=== PATIENT | male | born 1995 | race Caucasian/White ===

== ENCOUNTER 2016-11-06 15:11 | Emergency (ER) | payer OTHER ==
[2016-11-06] MEDS ORDERED: GASTROGRAFIN SOLUTION 30ML (Q9963) As Ordered ONE (15:53)
[2016-11-06] MEDS ORDERED: MORPHINE 2 MG/ML 1ML SYRINGE As Ordered ONE (15:53)
[2016-11-06 15:58] LABS: BASO # 0.1 K/mm3 (0.0-0.2); BASO % 1.9 % (0.0-1.0); EOS # 0.1 K/mm3 (0.0-0.50); LARGE UNSTAINED CELL # 0.1 K/mm3 (0.0-0.4); LARGE UNSTAINED CELL % 2.1 % (0.0-4.0); LYMPH # 2.1 K/mm3 (1.5-6.5); LYMPH % 31.6 % (24.0-44.0); MEAN CORPUSCULAR HEMOGLOBIN 29.7 pg (27.0-33.0); MEAN CORPUSCULAR HGB CONC 35.5 g/dl (32.0-36.5); MEAN CORPUSCULAR VOLUME 83.7 fl (80.0-96.0); MONO # 0.4 K/mm3 (0.0-0.8); MONO % 6.1 % (0.0-5.0); NEUTROPHILS # 3.6 K/mm3 (1.8-7.7); NEUTROPHILS % 56.3 % (36.0-66.0); PLATELET COUNT, AUTOMATED 281 k/mm3 (150-450); RED CELL DISTRIBUTION WIDTH 12.6 % (11.5-14.5); WHITE BLOOD COUNT 6.4 K/mm3 (4.0-10.0)
[2016-11-06 16:10] LABS: ALBUMIN 4.1 GM/DL (3.2-5.2); ALBUMIN/GLOBULIN RATIO 1.21 (1.00-1.93); ALKALINE PHOSPHATASE 116 U/L (45-117); ALT/SGPT 29 U/L (12-78); AMYLASE 77 U/L (25-115); ANION GAP 7 MEQ/L (8-16); AST/SGOT 16 U/L (15-37); BILIRUBIN,DIRECT 0.2 MG/DL (0.0-0.2); BILIRUBIN,TOTAL 0.4 MG/DL (0.2-1.0); BLOOD UREA NITROGEN 7 MG/DL (7-18); CARBON DIOXIDE LEVEL 31 MEQ/L (21-32); CHLORIDE LEVEL 106 MEQ/L (98-107); CREATININE FOR GFR 0.95 MG/DL (0.70-1.30); GLOMERULAR FILTRATION RATE > 60.0 (>60); GLUCOSE, FASTING 89 MG/DL (70-105); POTASSIUM SERUM 4.5 MEQ/L (3.5-5.1); SODIUM LEVEL 144 MEQ/L (136-145); TOTAL PROTEIN 7.5 GM/DL (6.4-8.2)
[2016-11-06] MEDS ORDERED: ISOVUE-370 76% 100ML VIAL (Q9967) As Ordered ONE (17:18)
--- NOTE | 2016-11-06 17:57 | REP ---
Clinical: Right lower quadrant pain. Technique: Axial contrast enhanced images from the lung bases to the pubic symphysis using oral and 100 ml Isovue 370 intravenous contrast material with coronal and sagittal re-formations. Findings: Lung bases are clear. Visualized portions of the heart and pericardium are normal. Liver, spleen, pancreas, gallbladder, bilateral adrenal glands and kidneys are normal. There is no evidence for bowel obstruction and a normal terminal ileum and appendix are identified in the right lower quadrant. Subtle area of pericolonic stranding involving the distal descending/proximal sigmoid colon (images 103 - 112) may reflect mild focal colitis versus epiploic appendagitis. Pelvis demonstrates normal bladder and age appropriate prostate/seminal vesicles. No pelvic fluid or ascites. No adenopathy. No free air. Abdominal aorta and vasculature is normal. Surrounding musculoskeletal structures are intact. Impression: 1. Possible mild focal colitis versus epiploic appendagitis involving the proximal sigmoid colon. 2. Otherwise normal contrast enhanced CT of the abdomen and pelvis with normal right lower quadrant structures including terminal ileum and appendix. Signed by Kp Nair MD 11/06/2016 05:49 P
--- NOTE | 2016-11-06 18:38 | EDDOCDS ---
Physician Documentation [facility] Name: Refugio Cedeño Age: 21 yrs Sex: Male : 1995 Arrival Date: 11/06/2016 Time: 15:11 Bed I7 / 29 Private MD: [facility] Disposition: 11/06/16 18:16 Discharged to Home/Self Care. Impression: Left sided colitis - possible epiploic appendigitis, Gastrointestinal hemorrhage, unspecified - suspect rectal fissure. - Condition is Stable. - Discharge Instructions: Anal Fissure, Adult, Gastrointestinal Bleeding. - Prescriptions for Cipro 500 mg Oral Tablet - take 1 tablet by ORAL route every 12 hours; 14 tablet. Flagyl 500 mg Oral Tablet - take 1 tablet by ORAL route every 8 hours for 7 days; 21 tablet. Anusol- HC 25 mg Rectal Suppository - insert 1 suppository by RECTAL route every 12 hours As needed; 20 suppository. - Medication Reconciliation, Local Pharmacy Hours form. - Follow up: [facility]; When: Tomorrow; Reason: Recheck today's complaints. Follow up: Emergency Department; When: As needed; Reason: Worsening of conditions. - Problem is new. - Symptoms have improved. Historical: - Allergies: no known allergies; - Home Meds: 1. none - PMHx: none; - PSHx: none; - Social history: Smoking status: Patient uses tobacco products, heavy tobacco smoker. No barriers to communication noted, The patient speaks fluent Nigerien, Speaks appropriately for age. - Family history: Not pertinent. - : The pt / caregiver states he / she is not on anticoagulants. Home medication list is obtained from the patient. - Exposure Risk Screening:: None identified. Vital Signs: 11/06 15:12 BP 136 / 69; Pulse 54; Resp 18 S; Temp 97.8(O); Pulse Ox 100% on R/A; Weight 81.65 kg / dd6 180.01 lbs (R); Height 70 in. (177.80 cm) (R); 15:59 BP 129 / 69 Supine; Pulse 45; Resp 18; Pulse Ox 99% on R/A; jmb 15:59 BP 133 / 78 Sitting; Pulse 52; Resp 18; Pulse Ox 97% on R/A; jmb 15:59 BP 129 / 83 Standing; Pulse 49; Resp 18; Pulse Ox 98% on R/A; jmb 15:12 Body Mass Index 25.83 (81.65 kg, 177.80 cm) dd6 MDM: 15:26 IV Saline Lock ordered. ar2 15:26 Undress patient appropriately for examination ordered. ar2 15:26 NS 0.9% 1000 ml IV at bolus once ordered. ar2 15:26 Orthostatic VS ordered. ar2 15:27 morphine 2 mg IVP once ordered. ar2 15:27 Amylase Ordered. EDMS 15:27 Basic Metabolic Profile Ordered. EDMS 15:27 CBC with Diff Ordered. EDMS 15:27 Lipase Ordered. EDMS 15:27 Liver Profile Ordered. EDMS 15:27 Lactic Acid (Weathers tube on ice) Ordered. EDMS 15:27 Type & Screen Ordered. EDMS 15:28 CT ABD & PELVIS: IV and Oral Contrast Ordered. EDMS 15:28 NOTHING BY MOUTH+DIET ordered. EDMS 15:56 Financial registration complete. gj 15:59 [facility] Payment Agreement was scanned into [employer] and attached to record. gjb 16:12 Basic Metabolic Profile Reviewed. ar2 16:12 CBC with Diff Reviewed. ar2 16:12 Amylase Reviewed. ar2 16:12 Lipase Reviewed. ar2 16:12 Liver Profile Reviewed. ar2 16:12 Lactic Acid (Weathers tube on ice) Reviewed. ar2 16:12 Type & Screen Reviewed. ar2 Administered Medications: 16:06 Drug: NS 0.9% 1000 ml [sodium chloride 0.9 % intravenous solution] Route: IV; Rate: jmb bolus; Site: left antecubital; 16:06 Drug: morphine 2 mg [morphine 2 mg/mL intravenous cartridge (1 mL)] Route: IVP; Site: b left antecubital; Signatures: Dispatcher [employer] EDMS Leo Bird PA-C PA-C ar2 Raquel Walsh RN RN ms18 Jeny Edward RN RN kc3 Marguerite Thompson gjb Soni Jones RN RN tm5 Arnie Bynum RN The chart was reviewed and I authenticate all verbal orders and agree with the evaluation and treatment provided.Attachments: 15:59 [facility] Payment Agreement [facility] MTDD
--- NOTE | 2016-11-06 18:38 | EDDOCDS ---
Nurse's Notes [facility] Name: Refugio Cedeño Age: 21 yrs Sex: Male : 1995 Arrival Date: 11/06/2016 Time: 15:11 Bed I7 / 29 [facility] Diagnosis: Left sided colitis-possible epiploic appendigitis;Gastrointestinal hemorrhage, unspecified-suspect rectal fissure Presentation: 11/06 15:13 Presenting complaint: Patient states: moderate amount of bright blood in stool x 2 days kc3 with right lower quadrant pain x 4 days with achiness reported. Adult Sepsis Screening: The patient does not have new or worsening altered mentation. Patient's respiratory rate is less than 22. Systolic blood pressure is greater than 100. Patient has a qSOFA score of 0- Negative Sepsis Screen. Suicide/Homicide risk assessment- the patient denies having any suicidal and/or homicidal ideations and does not present with any other emotional, behavioral or mental health complaints. Status: The patient is an active duty client service professional. Transition of care: patient was not received from another setting of care. 15:13 Acuity: RL Level 3 kc3 15:13 Method Of Arrival: Walkin/Carried/Asstd kc3 Triage Assessment: 15:15 General: Appears in no apparent distress, comfortable, Behavior is appropriate for age, kc3 cooperative, reports feeling weak. . Pain: Location: right lower quadrant Pain currently is 5 out of 10 on a pain scale. Pt Declines HIV testing. Neurological: Level of Consciousness is awake, alert, obeys commands, Oriented to person, place, time. Respiratory: Respiratory effort is even, unlabored, Respiratory pattern is regular, symmetrical. GI: Reports bloody stools lower abdominal pain. Derm: Skin is pink, warm & dry. Historical: - Allergies: no known allergies; - Home Meds: 1. none - PMHx: none; - PSHx: none; - Social history: Smoking status: Patient uses tobacco products, heavy tobacco smoker. No barriers to communication noted, The patient speaks fluent Bhutanese, Speaks appropriately for age. - Family history: Not pertinent. - : The pt / caregiver states he / she is not on anticoagulants. Home medication list is obtained from the patient. - Exposure Risk Screening:: None identified. Screenin:47 Screening information is obtained from the patient. Fall risk: No risks identified. ms18 Assistance ADL's: requires no assistance with activities of daily living. Abuse/DV Screen: The patient / caregiver reports he/she is: not in a situation that causes fear, pain or injury. Nutritional screening: No deficits noted. Advance Directives: There is no living will. home support is adequate. Assessment: 15:47 General: Appears in no apparent distress, comfortable, well nourished, well groomed, ms18 Behavior is appropriate for age, cooperative. Neurological: No deficits noted. Respiratory: Airway is patent Respiratory effort is even, unlabored. GI: Abdomen is flat, Reports bloody stools. Derm: Skin is pink, warm & dry. 16:40 General: Appears in no apparent distress, comfortable, Behavior is appropriate for age, jmb cooperative. Neurological: Level of Consciousness is awake, alert, obeys commands, Oriented to person, place, time. Respiratory: Airway is patent Respiratory effort is even, unlabored, Respiratory pattern is regular, symmetrical. 17:16 General: Appears in no apparent distress, comfortable, Behavior is appropriate for age, jmb cooperative, Patient laying on stretcher, appears comfortable. Patient denies discomfort at this time. . Neurological: Level of Consciousness is awake, alert, obeys commands, Oriented to person, place, time, Speech is normal, Facial symmetry appears normal, Facial symmetry: tongue is midline. Respiratory: Airway is patent Respiratory effort is even, unlabored, Respiratory pattern is regular, symmetrical. 18:14 General: Appears in no apparent distress, comfortable, Behavior is appropriate for age, jmb cooperative, Patient laying on stretcher, appears comfortable. Voices no complaints at this time. . Neurological: Level of Consciousness is awake, alert, obeys commands, Oriented to person, place, time. Respiratory: Airway is patent Respiratory effort is even, unlabored, Respiratory pattern is regular, symmetrical. 18:36 Reassessment: Patient appears in no apparent distress at this time. Patient denies pain tm5 at this time. Patient states feeling better. Patient states symptoms have improved. Vital Signs: 15:12 BP 136 / 69; Pulse 54; Resp 18 S; Temp 97.8(O); Pulse Ox 100% on R/A; Weight 81.65 kg dd6 (R); Height 70 in. (177.80 cm) (R); 15:59 BP 129 / 69 Supine; Pulse 45; Resp 18; Pulse Ox 99% on R/A; jmb 15:59 BP 133 / 78 Sitting; Pulse 52; Resp 18; Pulse Ox 97% on R/A; jmb 15:59 BP 129 / 83 Standing; Pulse 49; Resp 18; Pulse Ox 98% on R/A; jmb 15:12 Body Mass Index 25.83 (81.65 kg, 177.80 cm) dd6 Vitals: 15:12 Log In Time: November 06, 2016 at 15:10. dd6 ED Course: 15:12 Patient visited by Raul Pitts PCA. dd6 15:12 [facility] is Private Physician. dd6 15:12 Patient moved to Waiting dd6 15:13 Patient moved to Pre RCE dd6 15:15 Triage Initiated kc3 15:18 Patient moved to Triage 3 kc3 15:19 Leo Bird PA-C is PHCP. ar2 15:19 Daphnie Najera MD is Attending Physician. ar2 15:19 Patient visited by Leo Bird PA-C. ar2 15:29 Patient moved to I7 / rs6 15:46 Patient visited by Raquel Walsh RN. ms18 15:46 Type & Screen Sent. ms18 15:46 Lactic Acid (Weathers tube on ice) Sent. ms18 15:46 Amylase Sent. ms18 15:46 Basic Metabolic Profile Sent. ms18 15:46 CBC with Diff Sent. ms18 15:46 Lipase Sent. ms18 15:46 Liver Profile Sent. ms18 15:46 Inserted saline lock: 18 gauge in left antecubital area and blood collected. The ms18 patient tolerated the procedure well. 15:47 The patient / caregiver is instructed regarding the plan of care and ED course. Patient ms18 has correct armband on for positive identification. Placed in gown. Bed in low position. Call light in reach. Property :Personal belongings accompany Pt. 15:59 [facility] Payment Agreement was scanned into [employer] and attached to record. gjb 16:14 Patient name changed from Refugio\S\\S\Plaisted\S\ to Refugio\S\Daryl\S\Plaisted. EDMS 16:40 Patient visited by Arnie Bynum RN. jmb 17:05 Patient has correct armband on for positive identification. Bed in low position. Call jam1 light in reach. Side rails up X 1. Door closed. 17:17 Patient visited by Arnie Bynum RN. pierre 18:15 Patient visited by Arnie Bynum RN. samanthab 18:15 [facility] is Referral Physician. ar2 18:19 CT ABD & PELVIS: IV and Oral Contrast Returned. EDMS 18:36 Patient visited by Soni Jones RN. tm5 18:36 No procedures done that require assistance. tm5 Administered Medications: 16:06 Drug: NS 0.9% 1000 ml [sodium chloride 0.9 % intravenous solution] Route: IV; Rate: jmb bolus; Site: left antecubital; 16:06 Drug: morphine 2 mg [morphine 2 mg/mL intravenous cartridge (1 mL)] Route: IVP; Site: [facility] left antecubital; Order Results: Lab Order: Amylase; SPEC'M 11/06/16 15:37 Test: AMYLASE; Value: 77; Range: 25-115; Units: U/L; Status: F Lab Order: Basic Metabolic Profile; SPEC'M 11/06/16 15:37 Test: GLUCOSE, FASTING; Value: 89; Range: 70-105; Units: MG/DL; Status: F Test: BLOOD UREA NITROGEN; Value: 7; Range: 7-18; Units: MG/DL; Status: F Test: CREATININE FOR GFR; Value: 0.95; Range: 0.70-1.30; Units: MG/DL; Status: F Test: GLOMERULAR FILTRATION RATE; Value: > 60.0; Range: >60; Status: F Test: SODIUM LEVEL; Value: 144; Range: 136-145; Units: MEQ/L; Status: F Test: POTASSIUM SERUM; Value: 4.5; Range: 3.5-5.1; Units: MEQ/L; Status: F Test: CHLORIDE LEVEL; Value: 106; Range: 98-107; Units: MEQ/L; Status: F Test: CARBON DIOXIDE LEVEL; Value: 31; Range: 21-32; Units: MEQ/L; Status: F Test: ANION GAP; Value: 7; Range: 8-16; Abnormal: Below low normal; Units: MEQ/L; Status: F Test: CALCIUM LEVEL; Value: 9.0; Range: 8.5-10.1; Units: MG/DL; Status: F Test Note: ; Units are mL/min/1.73 m2 Chronic Kidney Disease Staging per NKF: Stage I & II GFR >=60 Normal to Mildly Decreased Stage III GFR 30-59 Moderately Decreased Stage IV GFR 15-29 Severely Decreased Stage V GFR <15 Very Little GFR Left ESRD GFR <15 on STRATEGIC CONSULTANT Lab Order: CBC with Diff; SPEC'M 11/06/16 15:37 Test: WHITE BLOOD COUNT; Value: 6.4; Range: 4.0-10.0; Units: K/mm3; Status: F Test: RED BLOOD COUNT; Value: 5.24; Range: 4.30-6.10; Units: M/mm3; Status: F Test: HEMOGLOBIN; Value: 15.6; Range: 14.0-18.0; Units: g/dl; Status: F Test: HEMATOCRIT; Value: 43.9; Range: 42.0-52.0; Units: %; Status: F Test: MEAN CORPUSCULAR VOLUME; Value: 83.7; Range: 80.0-96.0; Units: fl; Status: F Test: MEAN CORPUSCULAR HEMOGLOBIN; Value: 29.7; Range: 27.0-33.0; Units: pg; Status: F Test: MEAN CORPUSCULAR HGB CONC; Value: 35.5; Range: 32.0-36.5; Units: g/dl; Status: F Test: RED CELL DISTRIBUTION WIDTH; Value: 12.6; Range: 11.5-14.5; Units: %; Status: F Test: PLATELET COUNT, AUTOMATED; Value: 281; Range: 150-450; Units: k/mm3; Status: F Test: NEUTROPHILS %; Value: 56.3; Range: 36.0-66.0; Units: %; Status: F Test: LYMPH %; Value: 31.6; Range: 24.0-44.0; Units: %; Status: F Test: MONO %; Value: 6.1; Range: 0.0-5.0; Abnormal: Above high normal; Units: %; Status: F Test: EOS %; Value: 2.0; Range: 0.0-3.0; Units: %; Status: F Test: BASO %; Value: 1.9; Range: 0.0-1.0; Abnormal: Above high normal; Units: %; Status: F Test: LARGE UNSTAINED CELL %; Value: 2.1; Range: 0.0-4.0; Units: %; Status: F Test: NEUTROPHILS #; Value: 3.6; Range: 1.8-7.7; Units: K/mm3; Status: F Test: LYMPH #; Value: 2.1; Range: 1.5-6.5; Units: K/mm3; Status: F Test: MONO #; Value: 0.4; Range: 0.0-0.8; Units: K/mm3; Status: F Test: EOS #; Value: 0.1; Range: 0.0-0.50; Units: K/mm3; Status: F Test: BASO #; Value: 0.1; Range: 0.0-0.2; Units: K/mm3; Status: F Test: LARGE UNSTAINED CELL #; Value: 0.1; Range: 0.0-0.4; Units: K/mm3; Status: F Lab Order: Lipase; SPEC'M 11/06/16 15:37 Test: LIPASE; Value: 88; Range: 73-393; Units: U/L; Status: F Lab Order: Liver Profile; SPEC'M 11/06/16 15:37 Test: AST/SGOT; Value: 16; Range: 15-37; Units: U/L; Status: F Test: ALT/SGPT; Value: 29; Range: 12-78; Units: U/L; Status: F Test: ALKALINE PHOSPHATASE; Value: 116; Range: 45-117; Units: U/L; Status: F Test: BILIRUBIN,TOTAL; Value: 0.4; Range: 0.2-1.0; Units: MG/DL; Status: F Test: BILIRUBIN,DIRECT; Value: 0.2; Range: 0.0-0.2; Units: MG/DL; Status: F Test: TOTAL PROTEIN; Value: 7.5; Range: 6.4-8.2; Units: GM/DL; Status: F Test: ALBUMIN; Value: 4.1; Range: 3.2-5.2; Units: GM/DL; Status: F Test: ALBUMIN/GLOBULIN RATIO; Value: 1.21; Range: 1.00-1.93; Status: F Lab Order: Lactic Acid (Weathers tube on ice); SPEC'M 11/06/16 15:37 Test: LACTIC ACID LEVEL, LACTATE; Value: 1.5; Range: 0.4-2.0; Units: MMOL/L; Status: F Lab Order: Type & Screen; SPEC'M 11/06/16 15:37 Test: BLOOD TYPE; Value: O POS; Status: F Test: AB SCREEN (INDIRECT ABELARDO)GEL; Value: NEGATIVE; Status: F Radiology Order: CT ABD & PELVIS: IV and Oral Contrast Test: CT ABD & PELVIS: IV and Oral Contrast REASON FOR EXAMINATION: RLQ pain, hematochezia; Clinical: Right lower quadrant pain.; ; Technique: Axial contrast enhanced images from the lung bases to the pubic; symphysis using oral and 100 ml Isovue 370 intravenous contrast material with; coronal and sagittal re-formations.; ; Findings:; Lung bases are clear. Visualized portions of the heart and pericardium are; normal.; ; Liver, spleen, pancreas, gallbladder, bilateral adrenal glands and kidneys are; normal. There is no evidence for bowel obstruction and a normal terminal ileum; and appendix are identified in the right lower quadrant. Subtle area of; pericolonic stranding involving the distal descending/proximal sigmoid colon; (images 103 - 112) may reflect mild focal colitis versus epiploic appendagitis.; Pelvis demonstrates normal bladder and age appropriate prostate/seminal vesicles.; No pelvic fluid or ascites. No adenopathy. No free air. Abdominal aorta and; vasculature is normal. Surrounding musculoskeletal structures are intact.; ; Impression:; 1. Possible mild focal colitis versus epiploic appendagitis involving the; proximal sigmoid colon.; 2. Otherwise normal contrast enhanced CT of the abdomen and pelvis with normal; right lower quadrant structures including terminal ileum and appendix.; ; ; Signed by; Kp Nair MD 11/06/2016 05:49 P; Outcome: 18:16 Discharge ordered by Provider. ar2 18:36 Discharge Assessment: Patient awake, alert and oriented x 3. No cognitive and/or tm5 functional deficits noted. Patient verbalized understanding of disposition instructions. patient administered narcotics - yes. Pt provided with safe discharge. The following High Risk Discharge criteria are identified: None. Discharged to home ambulatory, with friend. Condition: good Condition: stable. Discharge instructions given to patient, Instructed on discharge instructions, follow up and referral plans. medication usage, Demonstrated understanding of instructions, medications, Prescriptions given X 3. CT Study completed. 18:37 Patient left the ED. tm5 Signatures: Dispatcher [employer] EDMS Venecia Donohue, CRYPTOGRAPHIC VULNERABILITY ANALYST CRYPTOGRAPHIC VULNERABILITY ANALYST jam1 Leo Bird PA-C PA-C ar2 Raul Pitts, CRYPTOGRAPHIC VULNERABILITY ANALYST CRYPTOGRAPHIC VULNERABILITY ANALYST dd6 Arnie Bynum,RN RN Raquel Fajardo RN RN ms18 Tayler Marcus, CRYPTOGRAPHIC VULNERABILITY ANALYST CRYPTOGRAPHIC VULNERABILITY ANALYST rs6 Jeny Edward,PAPO RN kc3 Marguerite Thompson Tonya,RN RN tm5 MTDD
--- NOTE | 2016-11-08 19:38 | EDDOCDS ---
Physician Documentation [facility] Name: Refugio Cedeño Age: 21 yrs Sex: Male : 1995 Arrival Date: 11/06/2016 Time: 15:11 Bed I7 / 29 Private MD: [facility] Disposition: 11/06/16 18:16 Discharged to Home/Self Care. Impression: Left sided colitis - possible epiploic appendigitis, Gastrointestinal hemorrhage, unspecified - suspect rectal fissure. - Condition is Stable. - Discharge Instructions: Anal Fissure, Adult, Gastrointestinal Bleeding. - Prescriptions for Cipro 500 mg Oral Tablet - take 1 tablet by ORAL route every 12 hours; 14 tablet. Flagyl 500 mg Oral Tablet - take 1 tablet by ORAL route every 8 hours for 7 days; 21 tablet. Anusol- HC 25 mg Rectal Suppository - insert 1 suppository by RECTAL route every 12 hours As needed; 20 suppository. - Medication Reconciliation, Local Pharmacy Hours form. - Follow up: [facility]; When: Tomorrow; Reason: Recheck today's complaints. Follow up: Emergency Department; When: As needed; Reason: Worsening of conditions. - Problem is new. - Symptoms have improved. Historical: - Allergies: no known allergies; - Home Meds: 1. none - PMHx: none; - PSHx: none; - Social history: Smoking status: Patient uses tobacco products, heavy tobacco smoker. No barriers to communication noted, The patient speaks fluent Slovenian, Speaks appropriately for age. - Family history: Not pertinent. - : The pt / caregiver states he / she is not on anticoagulants. Home medication list is obtained from the patient. - Exposure Risk Screening:: None identified. Vital Signs: 11/06 15:12 BP 136 / 69; Pulse 54; Resp 18 S; Temp 97.8(O); Pulse Ox 100% on R/A; Weight 81.65 kg / dd6 180.01 lbs (R); Height 70 in. (177.80 cm) (R); 15:59 BP 129 / 69 Supine; Pulse 45; Resp 18; Pulse Ox 99% on R/A; jmb 15:59 BP 133 / 78 Sitting; Pulse 52; Resp 18; Pulse Ox 97% on R/A; jmb 15:59 BP 129 / 83 Standing; Pulse 49; Resp 18; Pulse Ox 98% on R/A; jmb 15:12 Body Mass Index 25.83 (81.65 kg, 177.80 cm) dd6 MDM: 15:26 IV Saline Lock ordered. ar2 15:26 Undress patient appropriately for examination ordered. ar2 15:26 NS 0.9% 1000 ml IV at bolus once ordered. ar2 15:26 Orthostatic VS ordered. ar2 15:27 morphine 2 mg IVP once ordered. ar2 15:27 Amylase Ordered. EDMS 15:27 Basic Metabolic Profile Ordered. EDMS 15:27 CBC with Diff Ordered. EDMS 15:27 Lipase Ordered. EDMS 15:27 Liver Profile Ordered. EDMS 15:27 Lactic Acid (Weathers tube on ice) Ordered. EDMS 15:27 Type & Screen Ordered. EDMS 15:28 CT ABD & PELVIS: IV and Oral Contrast Ordered. EDMS 15:28 NOTHING BY MOUTH+DIET ordered. EDMS 15:56 Financial registration complete. gjb 15:59 [facility] Payment Agreement was scanned into [employer] and attached to record. gjb 16:12 Basic Metabolic Profile Reviewed. ar2 16:12 CBC with Diff Reviewed. ar2 16:12 Amylase Reviewed. ar2 16:12 Lipase Reviewed. ar2 16:12 Liver Profile Reviewed. ar2 16:12 Lactic Acid (Weathers tube on ice) Reviewed. ar2 16:12 Type & Screen Reviewed. ar2 11/07 11:50 T-Sheet-- Draft Copy was scanned into [employer] and attached to record. gb 11:50 Radiology Report was scanned into [employer] and attached to record. gb 11:51 PCR was scanned into [employer] and attached to record. gb Administered Medications: 11/06 16:06 Drug: NS 0.9% 1000 ml [sodium chloride 0.9 % intravenous solution] Route: IV; Rate: jmb bolus; Site: left antecubital; 16:06 Drug: morphine 2 mg [morphine 2 mg/mL intravenous cartridge (1 mL)] Route: IVP; Site: jmb left antecubital; Signatures: Dispatcher [employer] EDMS Jessica Tamayo, Reg Reg gb Leo Bird, MARK PANavdeepC ar2 Raquel Walsh RN RN ms18 Jeny Edward RN RN kc3 Marguerite Thompson TonyaRN RN tm5 Arnie Bynum RN jmb The chart was reviewed and I authenticate all verbal orders and agree with the evaluation and treatment provided.Attachments: 15:59 [facility] Payment Agreement gjb 11/07 11:50 T-Sheet-- Draft Copy gb Chart Complete MTDD
--- NOTE | 2016-11-08 19:38 | EDDOCDS ---
Nurse's Notes [facility] Name: Refugio Cedeño Age: 21 yrs Sex: Male : 1995 Arrival Date: 11/06/2016 Time: 15:11 Bed I7 / 29 [facility] Diagnosis: Left sided colitis-possible epiploic appendigitis;Gastrointestinal hemorrhage, unspecified-suspect rectal fissure Presentation: 11/06 15:13 Presenting complaint: Patient states: moderate amount of bright blood in stool x 2 days kc3 with right lower quadrant pain x 4 days with achiness reported. Adult Sepsis Screening: The patient does not have new or worsening altered mentation. Patient's respiratory rate is less than 22. Systolic blood pressure is greater than 100. Patient has a qSOFA score of 0- Negative Sepsis Screen. Suicide/Homicide risk assessment- the patient denies having any suicidal and/or homicidal ideations and does not present with any other emotional, behavioral or mental health complaints. Status: The patient is an active duty clinical services director. Transition of care: patient was not received from another setting of care. 15:13 Acuity: RL Level 3 kc3 15:13 Method Of Arrival: Walkin/Carried/Asstd kc3 Triage Assessment: 15:15 General: Appears in no apparent distress, comfortable, Behavior is appropriate for age, kc3 cooperative, reports feeling weak. . Pain: Location: right lower quadrant Pain currently is 5 out of 10 on a pain scale. Pt Declines HIV testing. Neurological: Level of Consciousness is awake, alert, obeys commands, Oriented to person, place, time. Respiratory: Respiratory effort is even, unlabored, Respiratory pattern is regular, symmetrical. GI: Reports bloody stools lower abdominal pain. Derm: Skin is pink, warm & dry. Historical: - Allergies: no known allergies; - Home Meds: 1. none - PMHx: none; - PSHx: none; - Social history: Smoking status: Patient uses tobacco products, heavy tobacco smoker. No barriers to communication noted, The patient speaks fluent [place], Speaks appropriately for age. - Family history: Not pertinent. - : The pt / caregiver states he / she is not on anticoagulants. Home medication list is obtained from the patient. - Exposure Risk Screening:: None identified. Screenin:47 Screening information is obtained from the patient. Fall risk: No risks identified. ms18 Assistance ADL's: requires no assistance with activities of daily living. Abuse/DV Screen: The patient / caregiver reports he/she is: not in a situation that causes fear, pain or injury. Nutritional screening: No deficits noted. Advance Directives: There is no living will. home support is adequate. Assessment: 15:47 General: Appears in no apparent distress, comfortable, well nourished, well groomed, ms18 Behavior is appropriate for age, cooperative. Neurological: No deficits noted. Respiratory: Airway is patent Respiratory effort is even, unlabored. GI: Abdomen is flat, Reports bloody stools. Derm: Skin is pink, warm & dry. 16:40 General: Appears in no apparent distress, comfortable, Behavior is appropriate for age, jmb cooperative. Neurological: Level of Consciousness is awake, alert, obeys commands, Oriented to person, place, time. Respiratory: Airway is patent Respiratory effort is even, unlabored, Respiratory pattern is regular, symmetrical. 17:16 General: Appears in no apparent distress, comfortable, Behavior is appropriate for age, jmb cooperative, Patient laying on stretcher, appears comfortable. Patient denies discomfort at this time. . Neurological: Level of Consciousness is awake, alert, obeys commands, Oriented to person, place, time, Speech is normal, Facial symmetry appears normal, Facial symmetry: tongue is midline. Respiratory: Airway is patent Respiratory effort is even, unlabored, Respiratory pattern is regular, symmetrical. 18:14 General: Appears in no apparent distress, comfortable, Behavior is appropriate for age, jmb cooperative, Patient laying on stretcher, appears comfortable. Voices no complaints at this time. . Neurological: Level of Consciousness is awake, alert, obeys commands, Oriented to person, place, time. Respiratory: Airway is patent Respiratory effort is even, unlabored, Respiratory pattern is regular, symmetrical. 18:36 Reassessment: Patient appears in no apparent distress at this time. Patient denies pain tm5 at this time. Patient states feeling better. Patient states symptoms have improved. Vital Signs: 15:12 BP 136 / 69; Pulse 54; Resp 18 S; Temp 97.8(O); Pulse Ox 100% on R/A; Weight 81.65 kg dd6 (R); Height 70 in. (177.80 cm) (R); 15:59 BP 129 / 69 Supine; Pulse 45; Resp 18; Pulse Ox 99% on R/A; jmb 15:59 BP 133 / 78 Sitting; Pulse 52; Resp 18; Pulse Ox 97% on R/A; jmb 15:59 BP 129 / 83 Standing; Pulse 49; Resp 18; Pulse Ox 98% on R/A; jmb 15:12 Body Mass Index 25.83 (81.65 kg, 177.80 cm) dd6 Vitals: 15:12 Log In Time: November 06, 2016 at 15:10. dd6 ED Course: 15:12 Patient visited by Raul Pitts PCA. dd6 15:12 [facility] is Private Physician. dd6 15:12 Patient moved to Waiting dd6 15:13 Patient moved to Pre RCE dd6 15:15 Triage Initiated kc3 15:18 Patient moved to Triage 3 kc3 15:19 Leo Bird PA-C is PHCP. ar2 15:19 Daphnie Najera MD is Attending Physician. ar2 15:19 Patient visited by Leo Bird PA-C. ar2 15:29 Patient moved to I7 / rs6 15:46 Patient visited by Raquel Walsh RN. ms18 15:46 Type & Screen Sent. ms18 15:46 Lactic Acid (Weathers tube on ice) Sent. ms18 15:46 Amylase Sent. ms18 15:46 Basic Metabolic Profile Sent. ms18 15:46 CBC with Diff Sent. ms18 15:46 Lipase Sent. ms18 15:46 Liver Profile Sent. ms18 15:46 Inserted saline lock: 18 gauge in left antecubital area and blood collected. The ms18 patient tolerated the procedure well. 15:47 The patient / caregiver is instructed regarding the plan of care and ED course. Patient ms18 has correct armband on for positive identification. Placed in gown. Bed in low position. Call light in reach. Property :Personal belongings accompany Pt. 15:59 [facility] Payment Agreement was scanned into Q-Bot and attached to record. gjb 16:14 Patient name changed from Refugio\S\\S\Plaisted\S\ to Refugio\S\Daryl\S\Plaisted. EDMS 16:40 Patient visited by Arnie Bynum RN. jmb 17:05 Patient has correct armband on for positive identification. Bed in low position. Call jam1 light in reach. Side rails up X 1. Door closed. 17:17 Patient visited by Arnie Bynum RN. pierre 18:15 Patient visited by Arnie Bynum RN. samanthab 18:15 [facility] is Referral Physician. ar2 18:19 CT ABD & PELVIS: IV and Oral Contrast Returned. EDMS 18:36 Patient visited by Soni Jones RN. tm5 18:36 No procedures done that require assistance. tm5 11/07 11:50 T-Sheet-- Draft Copy was scanned into Q-Bot and attached to record. gb 11:50 Radiology Report was scanned into Q-Bot and attached to record. gb 11:51 PCR was scanned into Q-Bot and attached to record. gb Administered Medications: 11/06 16:06 Drug: NS 0.9% 1000 ml [sodium chloride 0.9 % intravenous solution] Route: IV; Rate: jmb bolus; Site: left antecubital; 16:06 Drug: morphine 2 mg [morphine 2 mg/mL intravenous cartridge (1 mL)] Route: IVP; Site: [facility] left antecubital; Order Results: Lab Order: Amylase; SPEC'M 11/06/16 15:37 Test: AMYLASE; Value: 77; Range: 25-115; Units: U/L; Status: F Lab Order: Basic Metabolic Profile; SPEC'M 11/06/16 15:37 Test: GLUCOSE, FASTING; Value: 89; Range: 70-105; Units: MG/DL; Status: F Test: BLOOD UREA NITROGEN; Value: 7; Range: 7-18; Units: MG/DL; Status: F Test: CREATININE FOR GFR; Value: 0.95; Range: 0.70-1.30; Units: MG/DL; Status: F Test: GLOMERULAR FILTRATION RATE; Value: > 60.0; Range: >60; Status: F Test: SODIUM LEVEL; Value: 144; Range: 136-145; Units: MEQ/L; Status: F Test: POTASSIUM SERUM; Value: 4.5; Range: 3.5-5.1; Units: MEQ/L; Status: F Test: CHLORIDE LEVEL; Value: 106; Range: 98-107; Units: MEQ/L; Status: F Test: CARBON DIOXIDE LEVEL; Value: 31; Range: 21-32; Units: MEQ/L; Status: F Test: ANION GAP; Value: 7; Range: 8-16; Abnormal: Below low normal; Units: MEQ/L; Status: F Test: CALCIUM LEVEL; Value: 9.0; Range: 8.5-10.1; Units: MG/DL; Status: F Test Note: ; Units are mL/min/1.73 m2 Chronic Kidney Disease Staging per NKF: Stage I & II GFR >=60 Normal to Mildly Decreased Stage III GFR 30-59 Moderately Decreased Stage IV GFR 15-29 Severely Decreased Stage V GFR <15 Very Little GFR Left ESRD GFR <15 on SEARCH MARKETING COORDINATOR Lab Order: CBC with Diff; SPEC'M 11/06/16 15:37 Test: WHITE BLOOD COUNT; Value: 6.4; Range: 4.0-10.0; Units: K/mm3; Status: F Test: RED BLOOD COUNT; Value: 5.24; Range: 4.30-6.10; Units: M/mm3; Status: F Test: HEMOGLOBIN; Value: 15.6; Range: 14.0-18.0; Units: g/dl; Status: F Test: HEMATOCRIT; Value: 43.9; Range: 42.0-52.0; Units: %; Status: F Test: MEAN CORPUSCULAR VOLUME; Value: 83.7; Range: 80.0-96.0; Units: fl; Status: F Test: MEAN CORPUSCULAR HEMOGLOBIN; Value: 29.7; Range: 27.0-33.0; Units: pg; Status: F Test: MEAN CORPUSCULAR HGB CONC; Value: 35.5; Range: 32.0-36.5; Units: g/dl; Status: F Test: RED CELL DISTRIBUTION WIDTH; Value: 12.6; Range: 11.5-14.5; Units: %; Status: F Test: PLATELET COUNT, AUTOMATED; Value: 281; Range: 150-450; Units: k/mm3; Status: F Test: NEUTROPHILS %; Value: 56.3; Range: 36.0-66.0; Units: %; Status: F Test: LYMPH %; Value: 31.6; Range: 24.0-44.0; Units: %; Status: F Test: MONO %; Value: 6.1; Range: 0.0-5.0; Abnormal: Above high normal; Units: %; Status: F Test: EOS %; Value: 2.0; Range: 0.0-3.0; Units: %; Status: F Test: BASO %; Value: 1.9; Range: 0.0-1.0; Abnormal: Above high normal; Units: %; Status: F Test: LARGE UNSTAINED CELL %; Value: 2.1; Range: 0.0-4.0; Units: %; Status: F Test: NEUTROPHILS #; Value: 3.6; Range: 1.8-7.7; Units: K/mm3; Status: F Test: LYMPH #; Value: 2.1; Range: 1.5-6.5; Units: K/mm3; Status: F Test: MONO #; Value: 0.4; Range: 0.0-0.8; Units: K/mm3; Status: F Test: EOS #; Value: 0.1; Range: 0.0-0.50; Units: K/mm3; Status: F Test: BASO #; Value: 0.1; Range: 0.0-0.2; Units: K/mm3; Status: F Test: LARGE UNSTAINED CELL #; Value: 0.1; Range: 0.0-0.4; Units: K/mm3; Status: F Lab Order: Lipase; SPEC'M 11/06/16 15:37 Test: LIPASE; Value: 88; Range: 73-393; Units: U/L; Status: F Lab Order: Liver Profile; SPEC'M 11/06/16 15:37 Test: AST/SGOT; Value: 16; Range: 15-37; Units: U/L; Status: F Test: ALT/SGPT; Value: 29; Range: 12-78; Units: U/L; Status: F Test: ALKALINE PHOSPHATASE; Value: 116; Range: 45-117; Units: U/L; Status: F Test: BILIRUBIN,TOTAL; Value: 0.4; Range: 0.2-1.0; Units: MG/DL; Status: F Test: BILIRUBIN,DIRECT; Value: 0.2; Range: 0.0-0.2; Units: MG/DL; Status: F Test: TOTAL PROTEIN; Value: 7.5; Range: 6.4-8.2; Units: GM/DL; Status: F Test: ALBUMIN; Value: 4.1; Range: 3.2-5.2; Units: GM/DL; Status: F Test: ALBUMIN/GLOBULIN RATIO; Value: 1.21; Range: 1.00-1.93; Status: F Lab Order: Lactic Acid (Weathers tube on ice); SPEC'M 11/06/16 15:37 Test: LACTIC ACID LEVEL, LACTATE; Value: 1.5; Range: 0.4-2.0; Units: MMOL/L; Status: F Lab Order: Type & Screen; SPECM 11/06/16 15:37 Test: BLOOD TYPE; Value: O POS; Status: F Test: AB SCREEN (INDIRECT ABELARDO)GEL; Value: NEGATIVE; Status: F Radiology Order: CT ABD & PELVIS: IV and Oral Contrast Test: CT ABD & PELVIS: IV and Oral Contrast REASON FOR EXAMINATION: RLQ pain, hematochezia; Clinical: Right lower quadrant pain.; ; Technique: Axial contrast enhanced images from the lung bases to the pubic; symphysis using oral and 100 ml Isovue 370 intravenous contrast material with; coronal and sagittal re-formations.; ; Findings:; Lung bases are clear. Visualized portions of the heart and pericardium are; normal.; ; Liver, spleen, pancreas, gallbladder, bilateral adrenal glands and kidneys are; normal. There is no evidence for bowel obstruction and a normal terminal ileum; and appendix are identified in the right lower quadrant. Subtle area of; pericolonic stranding involving the distal descending/proximal sigmoid colon; (images 103 - 112) may reflect mild focal colitis versus epiploic appendagitis.; Pelvis demonstrates normal bladder and age appropriate prostate/seminal vesicles.; No pelvic fluid or ascites. No adenopathy. No free air. Abdominal aorta and; vasculature is normal. Surrounding musculoskeletal structures are intact.; ; Impression:; 1. Possible mild focal colitis versus epiploic appendagitis involving the; proximal sigmoid colon.; 2. Otherwise normal contrast enhanced CT of the abdomen and pelvis with normal; right lower quadrant structures including terminal ileum and appendix.; ; ; Signed by; Kp Nair MD 11/06/2016 05:49 P; Outcome: 18:16 Discharge ordered by Provider. ar2 18:36 Discharge Assessment: Patient awake, alert and oriented x 3. No cognitive and/or tm5 functional deficits noted. Patient verbalized understanding of disposition instructions. patient administered narcotics - yes. Pt provided with safe discharge. The following High Risk Discharge criteria are identified: None. Discharged to home ambulatory, with friend. Condition: good Condition: stable. Discharge instructions given to patient, Instructed on discharge instructions, follow up and referral plans. medication usage, Demonstrated understanding of instructions, medications, Prescriptions given X 3. CT Study completed. 18:37 Patient left the ED. tm5 Signatures: Dispatcher [employer] EDMS Venecia Donohue, TRUCK LOADER AND UNLOADER TRUCK LOADER AND UNLOADER jam1 Jessica Tamayo, Leo Salcido, PA-C PA-C ar2 Raul Pitts, TRUCK LOADER AND UNLOADER TRUCK LOADER AND UNLOADER dd6 Arnie Bynum,RN RN Raquel Fajardo,RN RN ms18 Tayler Marcus, TRUCK LOADER AND UNLOADER TRUCK LOADER AND UNLOADER rs6 Jeny Edward,RN RN maday3 Marguerite Thompson Tonya,RN RN tm5 Chart Complete [facility] CENTERJanell
--- NOTE | 2016-11-08 19:38 | EDDOCDS ---
Physician Documentation [facility] Name: Refugio Cedeño Age: 21 yrs Sex: Male : 1995 Arrival Date: 11/06/2016 Time: 15:11 Bed I7 / 29 Private MD: [facility] Disposition: 11/06/16 18:16 Discharged to Home/Self Care. Impression: Left sided colitis - possible epiploic appendigitis, Gastrointestinal hemorrhage, unspecified - suspect rectal fissure. - Condition is Stable. - Discharge Instructions: Anal Fissure, Adult, Gastrointestinal Bleeding. - Prescriptions for Cipro 500 mg Oral Tablet - take 1 tablet by ORAL route every 12 hours; 14 tablet. Flagyl 500 mg Oral Tablet - take 1 tablet by ORAL route every 8 hours for 7 days; 21 tablet. Anusol- HC 25 mg Rectal Suppository - insert 1 suppository by RECTAL route every 12 hours As needed; 20 suppository. - Medication Reconciliation, Local Pharmacy Hours form. - Follow up: [facility]; When: Tomorrow; Reason: Recheck today's complaints. Follow up: Emergency Department; When: As needed; Reason: Worsening of conditions. - Problem is new. - Symptoms have improved. Historical: - Allergies: no known allergies; - Home Meds: 1. none - PMHx: none; - PSHx: none; - Social history: Smoking status: Patient uses tobacco products, heavy tobacco smoker. No barriers to communication noted, The patient speaks fluent [place] Of [place], Speaks appropriately for age. - Family history: Not pertinent. - : The pt / caregiver states he / she is not on anticoagulants. Home medication list is obtained from the patient. - Exposure Risk Screening:: None identified. Vital Signs: 11/06 15:12 BP 136 / 69; Pulse 54; Resp 18 S; Temp 97.8(O); Pulse Ox 100% on R/A; Weight 81.65 kg / dd6 180.01 lbs (R); Height 70 in. (177.80 cm) (R); 15:59 BP 129 / 69 Supine; Pulse 45; Resp 18; Pulse Ox 99% on R/A; jmb 15:59 BP 133 / 78 Sitting; Pulse 52; Resp 18; Pulse Ox 97% on R/A; jmb 15:59 BP 129 / 83 Standing; Pulse 49; Resp 18; Pulse Ox 98% on R/A; jmb 15:12 Body Mass Index 25.83 (81.65 kg, 177.80 cm) dd6 MDM: 15:26 IV Saline Lock ordered. ar2 15:26 Undress patient appropriately for examination ordered. ar2 15:26 NS 0.9% 1000 ml IV at bolus once ordered. ar2 15:26 Orthostatic VS ordered. ar2 15:27 morphine 2 mg IVP once ordered. ar2 15:27 Amylase Ordered. EDMS 15:27 Basic Metabolic Profile Ordered. EDMS 15:27 CBC with Diff Ordered. EDMS 15:27 Lipase Ordered. EDMS 15:27 Liver Profile Ordered. EDMS 15:27 Lactic Acid (Weathers tube on ice) Ordered. EDMS 15:27 Type & Screen Ordered. EDMS 15:28 CT ABD & PELVIS: IV and Oral Contrast Ordered. EDMS 15:28 NOTHING BY MOUTH+DIET ordered. EDMS 15:56 Financial registration complete. gjb 15:59 [facility] Payment Agreement was scanned into [employer]Guard and attached to record. gjb 16:12 Basic Metabolic Profile Reviewed. ar2 16:12 CBC with Diff Reviewed. ar2 16:12 Amylase Reviewed. ar2 16:12 Lipase Reviewed. ar2 16:12 Liver Profile Reviewed. ar2 16:12 Lactic Acid (Weathers tube on ice) Reviewed. ar2 16:12 Type & Screen Reviewed. ar2 11/07 11:50 T-Sheet-- Draft Copy was scanned into [employer]Guard and attached to record. gb 11:50 Radiology Report was scanned into [employer] and attached to record. gb 11:51 PCR was scanned into [employer] and attached to record. gb Administered Medications: 11/06 16:06 Drug: NS 0.9% 1000 ml [sodium chloride 0.9 % intravenous solution] Route: IV; Rate: jmb bolus; Site: left antecubital; 16:06 Drug: morphine 2 mg [morphine 2 mg/mL intravenous cartridge (1 mL)] Route: IVP; Site: jmb left antecubital; Signatures: Dispatcher [employer] EDMS Jessica Tamayo, Reg Reg gb Leo Bird, MARK PANavdeepC ar2 Raquel Walsh RN RN ms18 Jeny Edward RN RN kc3 Marguerite Thompson TonyaRN RN tm5 Arnie Bynum RN jmb The chart was reviewed and I authenticate all verbal orders and agree with the evaluation and treatment provided.Attachments: 15:59 [facility] Payment Agreement gjb 11/07 11:50 T-Sheet-- Draft Copy gb Chart Complete MTDD
== END 2016-11-06 18:37 | disposition home or self-care (01) ==
LOC: M ED 15:11
DX: K52.9 Noninfective gastroenteritis and colitis, unspecified (principal); K92.2 Gastrointestinal hemorrhage, unspecified; F17.210 Nicotine dependence, cigarettes, uncomplicated
CPT/HCPCS: 36415; 74177; 80048; 80076; 82150; 83605; 83690; 85025; 86850; 86900; 86901; 96374; 99284; Q9963; Q9967

== ENCOUNTER → 2019-12-17 | Outpatient (REF) | payer SELFPAY ==
[2019-12-17 21:45] LABS: CHLAMYDIA DNA AMPLIFICATION NEGATIVE (NEGATIVE); GC DNA AMPLIFICATION NEGATIVE (NEGATIVE)
== END ==
LOC: M LAB REF 19:49
PROVIDERS: ATTEND Physician Assistant
DX: Z72.51 High risk heterosexual behavior (principal)

== ENCOUNTER 2021-03-04 17:03 | Emergency (ER) | payer OTHER ==
[~2021-03-04] VITALS: Ht 180.3 cm; Wt 94.8 kg
[2021-03-04] MEDS ORDERED: ALBUTEROL 90 MCG/ACT 8GM HFA INHALER INH ONE (19:00)
[2021-03-04 19:28] LABS: VENOUS BASE EXCESS 0.1 (-2.0-2.0); VENOUS O2 SATURATION 38.4 % (60.0-80.0); VENOUS PARTIAL PRESSURE CO2 51.4 mmHg (38.0-50.0); VENOUS PARTIAL PRESSURE O2 24.2 mmHg (30.0-50.0); VENOUS PH 7.338 UNITS (7.330-7.430); VENOUS STANDARD HCO3 22.9 MEQ/L; VENOUS TOTAL CO2 28.6 MEQ/L (24.0-28.0)
[2021-03-04 19:32] LABS: BASO # 0.1 10^3/uL (0.0-0.2); BASO % 1.2 % (0.0-1.0); EOS # 0.4 10^3/uL (0.0-0.5); EOS % 5.3 % (0.0-3.0); HEMATOCRIT 48.8 % (42.0-52.0); HEMOGLOBIN 16.6 g/dl (13.5-17.5); LYMPH # 2.6 10^3/uL (1.5-5.0); LYMPH % 33.8 % (24.0-44.0); MEAN CORPUSCULAR VOLUME 85.3 fl (80.0-96.0); MONO # 0.6 10^3/uL (0.0-0.8); MONO % 7.7 % (2.0-8.0); NEUTROPHILS % 51.7 % (36.0-66.0); PLATELET COUNT, AUTOMATED 373 10^3/uL (150-450); RED BLOOD COUNT 5.72 10^6/uL (4.30-6.10); WHITE BLOOD COUNT 7.8 10^3/uL (4.0-10.0)
[2021-03-04 20:07] LABS: ALT/SGPT 32 U/L (12-78); BILIRUBIN,DIRECT 0.2 MG/DL (0.0-0.2); BILIRUBIN,TOTAL 0.5 MG/DL (0.2-1.0); BLOOD UREA NITROGEN 13 MG/DL (7-18); CALCIUM LEVEL 9.1 MG/DL (8.5-10.1); CARBON DIOXIDE LEVEL 31 MEQ/L (21-32); CHLORIDE LEVEL 105 MEQ/L (98-107); CK-MB VALUE MASS < 1.0 NG/ML (<3.6); CPK CREATINE PHOSPHOKINASE 158 U/L (39-308); CREATININE FOR GFR 1.16 MG/DL (0.70-1.30); GLOMERULAR FILTRATION RATE > 60.0 (>60); GLUCOSE, FASTING 77 MG/DL (70-100); MB/CK RELATIVE INDEX 0.63 (< OR =4); POTASSIUM SERUM 4.4 MEQ/L (3.5-5.1); SODIUM LEVEL 141 MEQ/L (136-145); TOTAL PROTEIN 7.9 GM/DL (6.4-8.2); TROPONIN I < 0.02 NG/ML (< 0.10)
--- NOTE | 2021-03-04 20:10 | REP ---
INDICATION: DYSPNEA/COUGH. COMPARISON: None. FINDINGS: The technique utilized in obtaining the radiograph has magnified the cardiac silhouette and accentuated the interstitial markings. The superior mediastinal structures are midline. The cardiac silhouette is unremarkable in size, shape, and position. The diaphragmatic surfaces of the lungs are regular, and the costophrenic angles are clear. The pulmonary martin are clear. The imaged osseous structures are intact. IMPRESSION: There is no acute cardiopulmonary disease. <Electronically signed by Alfonzo Leong > 03/04/212005
[2021-03-04] MEDS ORDERED: ISOVUE-370 76% 100ML VIAL As Ordered ONE (20:59)
[2021-03-04] MEDS ORDERED: methylPREDNISolone 125MG 2ML VIAL IV ONE (21:10)
--- NOTE | 2021-03-04 22:06 | REPVR ---
PROCEDURE INFORMATION: Exam: CTA Chest With Contrast Exam date and time: 03/04/2021 9:03 PM Age: 25 years old Clinical indication: Shortness of breath; Additional info: Hoffman/sob lying flat TECHNIQUE: Imaging protocol: Computed tomographic angiography of the chest with contrast. 3D rendering (Not supervised by radiologist): MIP and/or 3D reconstructed images were created by the technologist. Radiation optimization: All CT scans at this facility use at least one of these dose optimization techniques: automated exposure control; mA and/or kV adjustment per patient size (includes targeted exams where dose is matched to clinical indication); or iterative reconstruction. Contrast material: ISOVUE 370; Contrast volume: 75 ml; Contrast route: INTRAVENOUS (IV); COMPARISON: CR PORTABLE CHEST X-RAY 03/04/2021 7:44 PM FINDINGS: Pulmonary arteries: Normal. No pulmonary emboli. Aorta: Unremarkable. No aortic aneurysm. No aortic dissection. Lungs: Unremarkable. No consolidation. No masses. Pleural spaces: Unremarkable. No pneumothorax. No pleural effusion. Heart: Unremarkable. No cardiomegaly. No pericardial effusion. Lymph nodes: Unremarkable. No enlarged lymph nodes. Bones/joints: Unremarkable. No acute fracture. Soft tissues: Unremarkable. IMPRESSION: No acute findings. Electronically signed by: Rahat Dorantes On 03/04/2021 22:06:13 PM
[2021-03-04] MEDS ORDERED: PRED20TA PO ×2 (22:40→22:54)
[2021-03-04] MEDS ORDERED: PROAAER10 INH ×2 (22:40→22:54)
[2021-03-04] MEDS ORDERED: FLON1SPR NARES ×2 (22:40→22:54)
[2021-03-04 22:44] VITALS: BP 128/86
--- NOTE | 2021-03-05 10:03 | ECGEPIP ---
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
== END 2021-03-04 22:55 | disposition home or self-care (01) ==
LOC: M ED 17:03
DX: R06.00 Dyspnea, unspecified (principal); J06.9 Acute upper respiratory infection, unspecified; R06.2 Wheezing; R00.1 Bradycardia, unspecified; J30.2 Other seasonal allergic rhinitis
CPT/HCPCS: 71045; 71275; 80047; 80048; 80076; 82550; 82553; 82803; 84484; 85025; 85379; 87798; 93005; 94640; 96374; 99284; J2930; Q9967